=== PATIENT | female | born 1955 | race Two or more races ===

== ENCOUNTER 2020-08-13 09:52 | Emergency (ER) | payer OTHER ==
[~2020-08-13] VITALS: Ht 160 cm; Wt 77.1 kg
[2020-08-13] MEDS ORDERED: PLAVIX75 MG (10:07)
[2020-08-13] MEDS ORDERED: PRAVASTATIN (10:07)
[2020-08-13] MEDS ORDERED: LOSARTAN POTASS50 MG (10:07)
== END 2020-08-13 18:10 | disposition home or self-care (01) ==
LOC: ER 09:52
DX: K57.92 Diverticulitis of intestine, part unspecified, without perforation or abscess without bleeding (principal); R14.0 Abdominal distension (gaseous)